=== PATIENT | male | born 1970 | race Hispanic/Latino ===

== ENCOUNTER 2019-12-13 17:49 | Emergency (ER) | payer OTHER ==
[~2019-12-13] VITALS: Ht 172.7 cm; Wt 84.8 kg
[2019-12-13] MEDS ORDERED: PREDNISONE20 MG PO (18:07)
[2019-12-13] MEDS ORDERED: HYDROXYZINE HCL25 MG PO (18:07)
[2019-12-13] MEDS ORDERED: DEXAMETHASONE SOD PHOS 10 MG/1 ML VIAL IM ONE (18:15)
--- NOTE | 2019-12-13 18:16 | Emergency Department Note ---
History of Present Illnes History of Present Illness Chief Complaint: Skin Rash or Abscess History of Present Illness This is a 49 year old male . 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 Onset (how long ago): day(s) (2 days was working without a shirt and thinks he was exposed to Poison jeff rash in back very pruritic) Severity: moderate Onset quality: sudden Duration (how long): day(s) Timing of current episode: constant Progression: unchanged Chronicity: new Context: Denies recent illness, Denies recent surgery, Denies recent immobilization, Denies recent travel, Denies trauma/injury, Denies new medications, Denies hx of DVT/PE, Denies non-compliance w/ medications, Denies other Relieving factors: none Exacerbating factors: none Associated symptoms: Denies denies other symptoms, Denies confusion, Denies chest pain, Denies cough, Denies diaphoresis, Denies fever/chills, Denies headaches, Denies loss of appetite, Denies malaise, Denies nausea/vomiting, Denies rash, Denies seizure, Denies shortness of breath, Denies syncope, Denies weakness, Denies other Treatments prior to arrival: none Past Medical/Family History Physician Review I have reviewed the patient's past medical and family history. Any updates have been documented here. Past Medical History Recent Fever: No Clinical Suspicion of Infectio: No New/Unexplained Change in Ment: No Other Medical History: HIV Other Surgery: FOOT Social History Smoking Cessation: Never Smoker Counseling Performed: No Alcohol Use: None Any Illegal Drug Use: No TB Exposure/Symptoms: No Physically hurt or threatened: No Other Last Tetanus: UNKNOWN Any Pre-Existing Lines (PICC,: No Is patient up to date on immun: Yes Last Flu: 2019 Last Pneumovax: NONE Review of Systems Review of Systems Constitutional: Denies fever Integumentary: Reports rash Review of other systems: All other systems negative Physical Exam Related Data Triage Vital Signs Vital Signs Date Time Temp Pulse Resp B/P (MAP) Pulse Ox O2 Delivery O2 Flow Rate FiO2 12/13/19 18:01 98.0 91 18 151/93 98 Vital signs reviewed: Yes Physical Exam CONSTITUTIONAL Constitutional: Present well-developed, Present well-nourished HENT HENT: Present normocephalic EYES Eyes: Reports conjunctivae normal NECK PULMONARY Pulmonary: Present breath sounds normal CARDIOVASCULAR Cardiovascular: Present regular rhythm GASTROINTESTINAL Abdominal: Present soft GENITOURINARY Genitourinary: Present exam deferred SKIN Skin: Present warm, Present other (large area in back with erythema, excoration) MUSCULOSKELETAL Musculoskeletal: Present ROM normal NEUROLOGICAL PSYCHOLOGICAL Psychological: Present mood/affect normal Assessment & Plan Medical Decision Making MDM rash, contact dermatitis, drug rash, poison jeff/oak Assessment & Plan Final Impression: (1) Contact dermatitis (2) Poison jeff Depart Disposition: HOME, SELF-CARE Last Vital Signs Date Time Temp Pulse Resp B/P (MAP) Pulse Ox O2 Delivery O2 Flow Rate FiO2 12/13/19 18:01 98.0 91 18 151/93 98 Home Meds Active Scripts Hydroxyzine Hcl (HYDROXYZINE HCL) 25 Mg Tablet, 25 MG PO QID PRN for ALLERGY for 5 Days, #20 TAB Prov:MAREN PUENTE MD 12/13/19 Prednisone (PREDNISONE) 20 Mg Tab, 10 MG PO DAILY, #5 60mg for 4 days then 40mg for 4 days then 20mg for 3 days then 10mg for 3 days Prov:MAREN PUENTE MD 12/13/19 Medications in the ED Dexamethasone Sodium Phosphate 10 mg ONCE ONCE IM ; Start 12/13/19 at 18:15; Stop 12/13/19 at 18:16 Dexamethasone Sodium Phosphate 10 mg STK-MED ONCE .ROUTE ; Start 12/13/19 at 18:17; Stop 12/13/19 at 18:12; Status DC MAREN PUENTE MD Dec 13, 2019 18:16
[2019-12-13] MEDS ORDERED: DEXAMETHASONE SOD PHOS 10 MG/1 ML VIAL ONE (18:17)
== END 2019-12-13 18:42 | disposition home or self-care (01) ==
LOC: FSED 17:49
DX: L23.7 Allergic contact dermatitis due to plants, except food (principal); B20 Human immunodeficiency virus [HIV] disease
CPT/HCPCS: 96372; 99282; J1100